=== PATIENT | male | born 1980 | race African-American/Black ===

== ENCOUNTER 2018-10-01 11:09 | Emergency (ER) | payer OTHER ==
[~2018-10-01] VITALS: Ht 188 cm; Wt 84.1 kg
[2018-10-01] MEDS ORDERED: LIDOCAINE 5% TRANSDERMAL PATCH TD ONE (13:00)
[2018-10-01] MEDS ORDERED: KETOROLAC TROMETHAMINE 30 MG/ML VIAL IM ONE (13:00)
[2018-10-01 15:30] VITALS: BP 119/85
== END 2018-10-01 15:22 | disposition home or self-care (01) ==
LOC: EMS 11:09
DX: S20.212A Contusion of left front wall of thorax, initial encounter (principal); S46.812A Strain of other muscles, fascia and tendons at shoulder and upper arm level, left arm, initial encounter; Z91.013 Allergy to seafood; V89.2XXA Person injured in unspecified motor-vehicle accident, traffic, initial encounter; Y93.89 Activity, other specified; Y92.488 Other paved roadways as the place of occurrence of the external cause; Y99.8 Other external cause status
CPT/HCPCS: 71101; 73030; 96372; 99283; J1885

== ENCOUNTER 2019-06-03 17:36 | Emergency (ER) | payer OTHER | END 2019-06-03 18:49 | disposition left against medical advice (07) | LOC: EMS 17:39 | DX: S10.15XA Superficial foreign body of throat, initial encounter (principal); Z53.21 Procedure and treatment not carried out due to patient leaving prior to being seen by health care provider; W45.8XXA Other foreign body or object entering through skin, initial encounter; Y93.89 Activity, other specified; Y92.89 Other specified places as the place of occurrence of the external cause; Y99.8 Other external cause status ==